=== PATIENT | female | born 1950 | race Caucasian/White ===

== ENCOUNTER 2022-08-11 09:35 | Observation (INO) ==
--- NOTE | 2022-07-14 14:47 | PAT Medication Instructions ---
Medication Instructions Date of Service July 14, 2022 Home Medications Medication List Herbal Sleep Blend 3 drp PO HS Kelp (iodine) 2 drp PO QAM acyclovir 200 mg capsule 400 mg PO TID PRN Cold Sores aspirin 81 mg capsule 81 mg PO QAM atorvastatin 20 mg tablet 20 mg PO HS cyanocobalamin (vitamin B-12) 1,000 mcg tablet (Vitamin B-12) 1,000 mcg PO QAM diclofenac sodium 75 mg tablet,delayed release 75 mg PO BID gabapentin 600 mg tablet 600 mg PO TID misoprostol 200 mcg tablet 200 mcg PO BID svvykpebpwej-Vc-zpyk-minerals 18 mg-0.4 mg tablet 1 tab PO QAM ASK your surgeon for instructions diclofenac sodium 75 mg tablet,delayed release 75 mg PO BID ASK your prescriber and surgeon aspirin 81 mg capsule 81 mg PO QAM STOP taking 2 weeks before surgery Herbal Sleep Blend 3 drp PO HS Kelp (iodine) 2 drp PO QAM DO NOT take the morning of surgery cyanocobalamin (vitamin B-12) 1,000 mcg tablet (Vitamin B-12) 1,000 mcg PO QAM yptqroqcpcxr-Qi-otrp-minerals 18 mg-0.4 mg tablet 1 tab PO QAM misoprostol 200 mcg tablet 200 mcg PO BID Take morning of surgery With a small sip of water, OTHERWISE NOTHING TO EAT OR DRINK AFTER MIDNIGHT: gabapentin 600 mg tablet 600 mg PO TID acyclovir 200 mg capsule 400 mg PO TID PRN Cold Sores (if needed) Take evening before surgery atorvastatin 20 mg tablet 20 mg PO HS gabapentin 600 mg tablet 600 mg PO TID acyclovir 200 mg capsule 400 mg PO TID PRN Cold Sores (if needed) misoprostol 200 mcg tablet 200 mcg PO BID Other Notes If you have any questions please call us at [phone] or [phone] or [phone] or [phone]
--- NOTE | 2022-07-17 11:53 | Anesthesiology Consultation ---
Date of Service July 17, 2022 Assessment & Plan (1) Encounter for pre-operative examination: Plan - Pt reports upcoming dental procedure and was advised of her need to further discuss with surgeon's office, Katalina with surgeon's office was made aware by myself. Pt also inquired as to request to transition to another NSAID given surgeon instructions to hold diclofenac x 2 weeks before surgery. She was advised she would need to further discuss that with surgeon's office. She verbalized full understanding and agreement, denied questions or concerns. Outpatient joint assessment: Patient is currently scheduled for inpatient pathway. If re-evaluated pending system levels during current pandemic/surgeon requests outpatient pathway, patient is not recommended candidate for outpatient joint program from anesthesia standpoint. Chart Review Chart Review: Acceptable Risk for Surgery and Patient seen in Pre Admission Testing Teaching & Discussion Pre-Anesthesia Teaching/Discussion Notes: Instructed NPO after midnight before surgery, except medications with 15 cc of water. Medication instructions provided according to the PAT guidelines. History Surgery Operation Date: 08/11/22 07:00 Proposed Procedures p Left Total Knee Arthroplasty - Jaspreet Carter MD Height/Weight Height: 5 ft 3 in Weight: 82.2 kg Allergies Allergy/AdvReac Type Severity Reaction Status Date / Time demerol AdvReac Mild nausea Uncoded 07/17/22 12:28 Medications Home Medications Medication Instructions Recorded Confirmed Last Taken Herbal Sleep Blend 3 drp PO HS 07/14/22 07/14/22 Unknown Kelp (iodine) 2 drp PO QAM 07/14/22 07/14/22 Unknown acyclovir 200 mg capsule 400 mg PO TID PRN Cold Sores 07/14/22 07/14/22 Unknown aspirin 81 mg capsule 81 mg PO QAM 07/14/22 07/14/22 Unknown atorvastatin 20 mg tablet 20 mg PO HS 07/14/22 07/14/22 Unknown cyanocobalamin (vitamin B-12) 1,000 mcg PO QAM 07/14/22 07/14/22 Unknown 1,000 mcg tablet (Vitamin B-12) diclofenac sodium 75 mg 75 mg PO BID 07/14/22 07/14/22 Unknown tablet,delayed release gabapentin 600 mg tablet 600 mg PO TID 07/14/22 07/14/22 Unknown misoprostol 200 mcg tablet 200 mcg PO BID 07/14/22 07/14/22 Unknown mbsekrexyuzs-Yq-olfc-minerals 18 1 tab PO QAM 07/14/22 07/14/22 Unknown mg-0.4 mg tablet Wheeled Walker #1 ea 07/17/22 07/17/22 Unknown Past Medical History Medical History History of dysphagia History of postnasal drip Hyperlipidemia Ruptured intervertebral disc Patient denies h/o stroke, seizures, heart attack, heart failure, DM, HTN, blood clots or blood transfusions. Exercise / Class Metabolic Activity II 4-5 Yardwork/Stairs/Walk up hill (denies chest discomfort or shortness of breath with 1 FOS) Past Surgical History Surgical History History of bilateral carpal tunnel release History of laparotomy Hx of bilateral cataract extraction Hx of breast reduction, elective Hx of colonoscopy Past Anesthesia History No Hx of Anesthesia Complications and No Family Hx of Anesthesia Complications History of PONV No Hx of PONV and No Hx of Motion Sickness Social History Smoking Status: Former smoker tobacco type: cigarettes Do You Dip or Chew Tobacco: No Smoking End Date: 25 years ago Hx Alcohol Use: Yes Alcohol type: wine alcohol intake frequency: 3 or more drinks per day (1/2 bottle of wine nightly) Hx Substance Use: No substance use type: does not use Review of Systems Occasional snoring, denies witnessed apneas. Patient denies chest pain, shortness of breath, dyspnea on exertion, reflux, fever, chills, cough, wheezing, or palpitations. Physical Exam Vital Signs Vitals BP 148/78 P 70 TEMP 98.3 SP02 97% on RA RESP 17 Physical Full cervical extension range of motion without pain TMD 3.5 finger breadths Mallampati Score 2 Dentition: removable bridge left upper side and implants left upper side, multiple caps/crowns; denies chipped teeth Lungs: normal respiratory effort. Clear throughout to auscultation, no adventitious breath sounds Cardiac: regular rate and rhythm, no murmurs noted Carotid arteries: negative bruit bilat Lab Results Anesthesia Preop Results Results Anesthesia Widget: WBC 5.97 K/ul (4.8-10.8) 07/17/22 Hgb 12.7 g/dl (12.0-16.0) 07/17/22 Hct 37.8 % (37.0-47.0) 07/17/22 Plt 271 K/uL (130-400) 07/17/22 Na 140 mmol/L (136-145) 07/17/22 K 4.3 mmol/L (3.5-5.1) 07/17/22 Cl 107 mmol/L (98-107) 07/17/22 CO2 27 mmol/L (21-32) 07/17/22 BUN 14 mg/dl (6-23) 07/17/22 Creat 0.58 mg/dl (0.6-1.2) L 07/17/22 Glucose Level 93 mg/dl (70-99(Fasting)) 07/17/22 PT 10.6 Seconds (9.0-12.0) 07/17/22 PTT 25.6 Seconds (21.0-31.0) 07/17/22 INR 1.0 (0.9-1.1) 07/17/22 Blood Type B Positive 07/17/22 Antibody Screen NEGATIVE 07/17/22 Testing Electrocardiogram Date: 07/17/22 NSR, rate [address] and T wave abnormality Chest X-Ray Date: 05/12/22 No acute cardiopulmonary abnormality COVID-19 Risk Screen Screening Information COVID-19 Screen Date: 07/17/22 Exposure 21 Days Family/Household +COVID Last 21 Days: No Exposure 10 Days Any COVID Exposure Last 10 Days: No Symptoms Last 10 Days Experienced COVID Sx Last 10 Days: No + COVID 0-90 Days COVID + in Last 0-90 Days: No
[~2022-08-11 09:35] MED LIST: ACETAMINOPHEN 500 MG TAB PO SCH; BUPIVACAINE 0.5 % 5 MG/1 ML PF 10ML VIAL ONE; BUPIVACAINE LIPOSOME/PF 266 MG, BUPIVACAINE/EPINEPHRINE 50 ML, SODIUM CHLORIDE 0.9% PF ... INFIL SCH; CeleBREX 200 MG CAP PO SCH; DEXAMETHASONE SOD INJ 4 MG/ML VIAL IV SCH; FAMOTIDINE 20 MG TAB PO SCH; LR 500ML BOLUS, THEN 15ML/HR IV SCH; LR 60ML/HR IV SCH; METOCLOPRAMIDE HCL 10 MG TABLET PO SCH; ROPIVACAINE 0.5% 5 MG/ML 30 ML VIAL ONE; TRANEXAMIC ACID 1,000 MG **IV Intra-op IV SCH; ceFAZolin 2000MG 2,000 MG/15 ML SYR IV SCH
--- NOTE | 2022-08-11 11:01 | History & Physical Bridge Note ---
Date of Service August 11, 2022 History & Physical Bridge Note I have examined the patient, reviewed the History & Physical and in the interval since the performance of the History & Physical I have noted the following changes of clinical significance: no changes noted
[2022-08-11] MEDS ORDERED: ATROPINE SULFATE 0.1 MG/ML 10ML SYR IV PRN (11:02)
[2022-08-11] MEDS ORDERED: fentaNYL citrate PF 100 MCG/2 ML VIAL IV PRN (11:02)
[2022-08-11] MEDS ORDERED: ONDANSETRON INJ 2 MG/ML 2 ML VIAL IV PRN (11:02)
[2022-08-11] MEDS ORDERED: ePHEDrine sulfate 50 MG/ML AMP IV PRN (11:02)
[2022-08-11] MEDS ORDERED: ONDANSETRON INJ 2 MG/ML 2 ML VIAL ONE (11:41)
[2022-08-11] MEDS ORDERED: LIDOCAINE 2% MPF LOCAL 5 ML VIAL INFIL ONE (11:41)
[2022-08-11] MEDS ORDERED: PROPOFOL IV EMULSION 10 MG/ML 20 ML VIAL IV ONE (11:41)
[2022-08-11] MEDS ORDERED: MIDAZOLAM HCL 1 MG/ML 2ML VIAL ONE (11:41)
[2022-08-11] MEDS ORDERED: SODIUM CHLORIDE 0.9% PF 50 ML VIAL ONE (12:49)
[2022-08-11] MEDS ORDERED: BUPIVACAINE LIPOSOME 1.3% 266 MG/20 ML VIAL ONE (12:49)
[2022-08-11] MEDS ORDERED: BUPIVACAINE/EPINEPHRINE 0.25% 1:200,000 30 ML VIAL ONE (12:49)
[2022-08-11] MEDS ORDERED: fentaNYL citrate PF 100 MCG/2 ML VIAL ONE (13:04)
[2022-08-11] MEDS ORDERED: HYDROmorphone INJ 0.5 MG/0.5 ML SYR IV PRN (14:55)
[2022-08-11] MEDS ORDERED: bisacodyL 10 MG SUPP PR PRN (14:55)
[2022-08-11] MEDS ORDERED: MAGNESIUM HYDROXIDE SUSP 30 ML UDC PO PRN (14:55)
[2022-08-11] MEDS ORDERED: ALUMINUM/MAGNESIUM SUSP 30 ML UDC PO PRN (14:55)
[2022-08-11] MEDS ORDERED: METOCLOPRAMIDE HCL INJ 5 MG/ML 2 ML VIAL IV PRN (14:55)
[2022-08-11] MEDS ORDERED: NALOXONE HCL 0.4 MG/1 ML VIAL/CARP IV PRN (14:55)
--- NOTE | 2022-08-11 15:00 | Operative Report ---
PG Post Operative Report Pre & Post Diagnosis Operation Date: 08/11/22 12:30 Pre-Op Diagnosis: Left Knee Degenerative Joint Disease Post-Op Diagnosis: Left Knee Degenerative Joint Disease I identified the patient and participated in the time-out.: Yes Procedure Operation Date: 08/11/22 12:30 Actual Procedures p Left Total Knee Arthroplasty(Left) - Jaspreet Carter MD Surgeon Jaspreet Carter MD Manager Terminal Maciej Mccray PA-C Estimated Blood Loss 50 Findings Consistent with Post-Op Diagnosis Operative findings were advanced left knee DJD. She had extensive tensive grade 4 abwq-le-ioue disease of the anteromedial compartmentpretty extensive in the patellofemoral compartment. Her lateral compartment is pretty well-preserved. Moderate-sized joint effusion. Specimens Left knee sent for pathology. Drains None Anesthesia Type Spinal MAC Complications none Disposition Accompanied Patient To Recovery: No Indications Patient is a 72-year-old female has had a several year history of gradual progressive increasing left knee pain discomfort. She been through extensive conservative treatment which became less successful as time is gone on. X-rays show advanced medial arthritis. She elected proceed with surgical treatment. Description of Procedure Operative implants consist of: 1 Biomet Vanguard size 60 left posterior stabilized femoral component. 2. Biomet size 67 tibial tray. 3. 10 mm posterior stabilized polyethylene insert. 4. 28 x 8 all Paller patella. The patient was taken to the operating, identified, placed on the operating table supine position but all contact areas were appropriately padded. IV antibiotics tried by anesthesia team. A spinal anesthetic and abductor canal block had been [place] holding area. Mathew catheter was placed in sterile fashion. A left thigh tourniquet was then placed in the left lower extremities and prepped and draped in usual sterile fashion. The left leg was elevated segued with use of an Esmarch and the tourniquet was set at 300 mmHg. An anterior approach left knee was then performed through a longitudinal incision centered over the patella. Sharp dissection was carried through subcutaneous tissue down the extensor mechanism. A medial parapatellar arthrotomy incision was made. Some subperiosteal dissection was carried out medially through the fat pad was dissected from Neath patella tendon. Lateral patellofemoral ligament was released. Patella subluxated laterally and the knee was flexed. The osteophytes were taken off distal femur. The ACL and PCL were then released from distal femur the tibia subluxated anteriorly. The external tibial alignment jig was then placed in the interface the tibia and adjusted 14 mm medially. Proximal tibial cut was made removed millimeter bone from most deficient aspect medial tibial plateau. Some osteophytes taken off medial and posterior medially. The tibia was then sized to a size 67. Attention drawn the femur. The distal femur of the sharp drop with intramedullary canal was suction. A left 5 degree valgus cutting guide was placed. Distal femoral cutting block was pinned in place. Distal femoral cut was made to take an additional 3 mm of bone off distal femur. The femur was then sized to a size 60. The AP cutting block was pinned parallel to the epicondylar axis which was 4 degrees of external rotation. Anterior cut, anterior chamfer, posterior cut, posterior chamfer cuts were made. The box cutting guide was placed in just slight lateral and the box cut was made. The remnants of the medial and lateral menisci were excised. The osteophytes taken off the posterior aspect of femur. Trial femoral component was placed. Tibial tray was pinned in maximum external rotation and the drill and stem punch used to create defect in the proximal tibia for the tibial tray. Knee was then trialed and the 10 mm insert fit most appropriately. Attention drawn the patella. The patella was cleaned of all soft tissues. Patella thickness measured 21 mm in thickness and was cut down to about 12. It was sized to a size 28 patella. The lug holes were drilled for the 28 patella. The lateral osteophyte was removed. Patella button was placed. Knee was taken through range of motion patella tracked nicely with no thumbs test. Attention drawn to place of the permanent components. All trial components were removed. Bone plug was placed in the distal femur limit blood loss. Double batch Palacos G cement was mixed. A Biomet Vanguard size 60 left posterior stabilized femoral component, size 67 tibial tray, a 10 mm posterior stabilized polyethylene insert, and a 28 x 8 all Paller patella then cemented in place. Knee was brought out in full extension till cement hardened. Final cement check was then performed. The pericapsular tissues were injected with total of 100 cc of combination of 20 of Exparel, 30 cc normal saline, 50 cc of quarter percent Marcaine with epinephrine. Patient did receive 1 g tranexamic acid. The tourniquet was then let down for final tourniquet time of 54 minutes. Hemostasis reduced electrocautery. Extensor mechanism then c losed with combination 1 PDS suture and #1 Vicryl suture in a [id number] fashion. Extensor mechanism checked found to be intact with subcutaneous tissue then closed with 2 Dexon suture in a buried interrupted fashion skin was closed skin nimo. Leg was then cleaned and dried and sterile dressed with Xeroform, 4 x 4's, sterile ABD pad, sterile cast padding, Favian bandage were applied. Patie nt then transferred to the recovery room in stable condition. Patient tolerated procedure well and there were no complications. Maciej Mccray, my physician assistant county attorney, was present for the entire procedure. His assistance was essential and required for appropriate patient positioning, prepping and draping, surgical exposure, performing the technical details of the operation, placement the implants, closure of the wound, and placement of the sterile bandage. I attest to the content of the Intraoperative Record and any orders documented therein. Any exceptions are noted below.
--- NOTE | 2022-08-11 15:55 | XRay Report ---
TWO VIEWS LEFT KNEE CLINICAL HISTORY: Postoperative examination. FINDINGS: AP and crosstable lateral portable views of the left knee are obtained. A left knee arthrop lasty is in near anatomic alignment. There has been undersurface remodeling of the patella. No acute fracture is seen. There are expected postoperative changes around the knee including skin clips, soft tissue edema, and subcutaneous gas. IMPRESSION: Expected postoperative changes status post left knee arthroplasty. No acute fracture is s een. ACT 112: Negative or not required by law. Electronically signed by: Reji Syed M.D. 08/11/2022 3:53 PM
--- NOTE | 2022-08-11 16:28 | Anesthesiology Progress Note ---
Date of Service August 11, 2022 Anesthesia Post Procedure Vital Signs Vital Signs: Temp Pulse Pulse Resp BP BP Pulse Ox 08/11/22 16:20 81 15 114/58 L 96 08/11/22 16:10 36.5 C 75 11 L 121/61 94 08/11/22 16:00 36.3 C L 76 12 118/58 L 94 08/11/22 15:50 73 11 L 109/54 L 95 08/11/22 15:40 78 13 111/55 L 97 08/11/22 15:30 79 16 107/67 99 08/11/22 15:20 77 15 103/50 L 98 08/11/22 15:10 85 11 L 110/53 L 96 08/11/22 15:00 36.1 C L 86 12 96/52 L 94 08/11/22 10:10 36.7 C 78 18 165/96 H 97 O2 Del Method O2 Flow Rate 08/11/22 16:20 Room Air 08/11/22 16:10 Room Air 08/11/22 16:00 Room Air 08/11/22 15:50 Room Air 08/11/22 15:40 Room Air 08/11/22 15:30 Oxymask 4 08/11/22 15:20 Oxymask 4 08/11/22 15:10 Oxymask 4 08/11/22 15:00 Oxymask 6 08/11/22 10:10 Room Air Transfer of Care Handoff Completed per policy Notes Mental Status: alert / awake / arousable Patient Amnestic to Procedure: Yes Nausea / Vomiting: adequately controlled Pain: adequately controlled Airway Patency, RR, SpO2: stable & adequate BP & HR: stable & adequate Hydration State: stable & adequate Neuraxial Anesthesia: was administered and sensory block is resolving Anesthetic Complications: no major complications apparent and Pt Satisfied with anesthetic care
[2022-08-11] MEDS ORDERED: oxyCODONE HCL IR 5 MG TAB (IMMEDIATE RELEASE) PO PRN (16:45)
[2022-08-11] MEDS: KETOROLAC TROMETHAMINE 15 MG/ML VIAL IV SCH ×2 (17:51→20:47)
[2022-08-11] MEDS: SODIUM CHLORIDE 0.9% 1000ML 1,000 ML IV SCH (17:51)
[2022-08-11] MEDS: ASCORBIC ACID 500 MG TAB PO SCH (18:23)
[2022-08-11] MEDS: ASPIRIN 81 MG ECTAB PO SCH (20:43)
[2022-08-11] MEDS: GABAPENTIN 600 MG TAB PO SCH (20:46)
[2022-08-11] MEDS: DOCUSATE SODIUM 100 MG CAP PO SCH (20:47)
[2022-08-11] MEDS: miSOPROStoL 200 MCG TAB PO SCH (20:50)
[2022-08-11] MEDS ORDERED: TRANEXAMIC ACID / 0.7% NACL 1,000 MG/100 ML BAG IV SCH (21:00)
[2022-08-11] MEDS ORDERED: [UNRECOGNIZED DRUG - OTHER] PO SCH (21:00)
[2022-08-11] MEDS ORDERED: SENNA 8.6 MG TAB PO SCH (21:00)
[2022-08-11] MEDS ORDERED: ATORVASTATIN 20 MG TAB PO SCH (21:00)
[2022-08-11] MEDS: oxyCODONE HCL IR 5 MG TAB (IMMEDIATE RELEASE) PO PRN (21:40)
[2022-08-11] MEDS: ACETAMINOPHEN 500 MG TAB PO SCH (21:41)
[2022-08-11] MEDS: ceFAZolin 2000MG 2,000 MG/15 ML SYR IV SCH (21:43)
[2022-08-12] MEDS: ONDANSETRON INJ 2 MG/ML 2 ML VIAL IV PRN ×2 (00:38→08:09)
[2022-08-12] MEDS: KETOROLAC TROMETHAMINE 15 MG/ML VIAL IV SCH ×3 (03:03→09:50)
[2022-08-12] MEDS: SODIUM CHLORIDE 0.9% 1000ML 1,000 ML IV SCH (03:10)
[2022-08-12] MEDS: ACETAMINOPHEN 500 MG TAB PO SCH (05:40)
[2022-08-12] MEDS: oxyCODONE HCL IR 5 MG TAB (IMMEDIATE RELEASE) PO PRN ×2 (05:41→12:31)
[2022-08-12] MEDS: ceFAZolin 2000MG 2,000 MG/15 ML SYR IV SCH (05:42)
[2022-08-12] MEDS ORDERED: DOCUSATE SODIUM/SENNA 50/8.6MG TAB PO SCH (09:00)
[2022-08-12] MEDS ORDERED: MULTIVITAMIN TAB PO SCH (09:00)
[2022-08-12] MEDS ORDERED: KELP PO SCH (09:00)
[2022-08-12] MEDS ORDERED: CYANOCOBALAMIN (B-12) 500 MCG TABLET PO SCH (09:00)
[2022-08-12] MEDS ORDERED: CEROVITE ADV FORMULA TAB PO SCH (09:00)
[2022-08-12] MEDS: ASCORBIC ACID 500 MG TAB PO SCH (09:16)
[2022-08-12] MEDS: DOCUSATE SODIUM 100 MG CAP PO SCH (09:16)
[2022-08-12] MEDS: miSOPROStoL 200 MCG TAB PO SCH (09:49)
[2022-08-12] MEDS: GABAPENTIN 600 MG TAB PO SCH (09:50)
[2022-08-12] MEDS: ASPIRIN 81 MG ECTAB PO SCH (09:51)
[2022-08-12 10:42] LABS: Hematocrit (blood only) 31.3 % (37.0-47.0); Hemoglobin 10.4 g/dl (12.0-16.0); Mean Corpuscular Hemoglobin 32.1 pg (25.0-34.0); Mean Corpuscular Hgb Conc 33.2 g/dL (32.0-36.0); Mean Corpuscular Volume 96.6 fL (80.0-100.0); Mean Platelet Volume 10.1 fL (9.4-12.4); Platelet Count 209 K/uL (130-400); RDW Coefficient of Variation 14.1 % (11.5-14.5); RDW Standard Deviation 50.1 fL (36.4-46.3); Red Blood Count 3.24 M/uL (4.20-5.40); White Blood Count 13.08 K/ul (4.8-10.8)
[2022-08-12 11:07] LABS: BUN Creatinine Ratio 30.6 (10-20); Calcium 8.7 mg/dl (8.6-10.3); Creatinine Clr Calc Pharmacy 71.6 ml/min; Est GFR (Non-African American) 83.7 ml/min; Potassium 3.5 mmol/L (3.5-5.1)
--- NOTE | 2022-08-12 13:27 | Progress Notes ---
DATE OF SERVICE: 08/12/2022 SUBJECTIVE: A 72-year-old white female postoperative day 1 from left knee replacement. She is doing well. Therapy went well. Pain is controlled. She is hoping to go home. No chest pain or shortnes s of breath. OBJECTIVE: VITAL SIGNS: Temperature 36.8. Vital signs are stable. PHYSICAL EXAMINATION: GENERAL: Physical examination shows a pleasant middle-aged female. She is sitting up in bed and loo ks pretty comfortable. LUNGS: Clear to auscultation. HEART: Regular rate and rhythm. ABDOMEN: Soft, nontender, and nondistended. EXTREMITIES: Grossly neurovascularly intact except as follows. Examination of the left leg reveals the dressing to be clean, dry, and intact. She can dorsiflex and plantarflex her foot. No detectable drainage. She has difficulty doing a straight leg raise. LABORATORY DATA: Hemoglobin 10.4. Hematocrit 31.3. Electrolytes are stable. ASSESSMENT: A 72-year-old white female postoperative day 1 from left knee replacement, doing pretty well. Pain is controlled. Therapy went well. She is hoping to go home. PLAN: 1. DVT prophylaxis to include thigh-high TEDs, SCDs, and aspirin twice a day. 2. PT, OT, and weightbear as tolerated. Left total knee protocol. 3. Pain control, doing okay with current pain regimen. 4. Disposition: Plan to discharge to her home with some home health today. Job ID: [id number]
--- NOTE | 2022-08-15 19:25 | Discharge Summary ---
Date of Service August 15, 2022 Discharge Data Procedures Performed Operation Date: 08/11/22 12:30 Actual Procedures p Left Total Knee Arthroplasty(Left) - Jaspreet Carter MD Hospital Course (1) Status post total left knee replacement: This is a 72 year old patient admitted on 08/11/22 and underwent total knee arthroplasty. She tolerated the procedure well and there were no complications. Transferred to the PACU post op and later to the orthopedic floor for further care. She was given ancef for antibiotic prophylaxis. She was also given RANGEL stockings, SCDs, and aspirin for DVT prophylaxis. Hemoglobin, hematocrit, and vital signs were monitored during her hospital stay and remained stable. Did not require any blood transfusions. There were no complications during her hospital stay. By post op day #1 the patient was tolerating a regular diet, pain was reasonably controlled with oral pain medicine, and she was participating in physical therapy. On post op day #1 the patient was discharged home and set up with home health care. She was given printed discharge instructions including prescriptions for extra strength tylenol, aspirin, cefadroxil, ketorolac, zofran, senokot, and oxycodone. Continue physical therapy, weight bearing as tolerated. Continue RANGEL stockings. Follow up approximately 2 weeks post op or sooner if there are problems or concerns. Coding Level of Care Code None Diagnoses Status post total left knee replacement Z96.652
== END 2022-08-12 13:42 | disposition home health service (06) ==
LOC: ASU 09:35 → 3E 09:35